=== PATIENT | male | born 1995 | race Caucasian/White ===

== ENCOUNTER 2019-12-07 15:26 | Emergency (ER) | payer BC ==
[2019-12-07] MEDS ORDERED: LIDOCAINE 1% W/ EPINEPHRINE 20 ML VIAL INJ ONE ×2 (16:03→16:05)
[2019-12-07] MEDS ORDERED: TETANUS-DIPHTHERIA TOXOIDS (TD) SYG IM ONE (16:37)
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
[2019-12-07] MEDS ORDERED: BACITRACIN 0.9 GM UD PCKT TOP ONE (16:48)
[2019-12-07 17:10] VITALS: BP 114/75; TEMP 98.7; O2SAT 100
== END 2019-12-07 17:08 | disposition home or self-care (01) ==
LOC: ER 15:26
DX: S01.81XA Laceration without foreign body of other part of head, initial encounter (principal); W22.8XXA Striking against or struck by other objects, initial encounter; Y92.9 Unspecified place or not applicable; Y93.19 Activity, other involving water and watercraft
CPT/HCPCS: 90714; J3490